=== PATIENT | male | born 2000 | race Caucasian/White ===

== ENCOUNTER 2021-07-26 19:44 | Emergency (ER) | payer SELFPAY ==
[~2021-07-26] VITALS: Ht 195.6 cm; Wt 81.6 kg
== END 2021-07-26 20:47 | disposition home or self-care (01) ==
LOC: ER 19:57
DX: Z48.01 Encounter for change or removal of surgical wound dressing (principal)
CPT/HCPCS: 99282

== ENCOUNTER → 2021-07-26 | Day surgery (SDC) | payer SELFPAY ==
[~2021-07-26] MED LIST: BUPIVACAINE HCL 0.5% INJ 30 ML VIAL INJ ONE; DEXAMETHASONE SOD PHOS INJ 4 MG/ML SDV ONE; DIPHENHYDRAMINE HCL INJ 50 MG/ML VIAL ONE; FENTANYL CITRATE/PF 100MCG/2 ML INJ ONE; KETOROLAC TROMETHAMINE 30 MG/ML VIAL ONE; LIDOCAINE 1% W/EPINEPHRINE 20 ML VIAL ONE; LIDOCAINE HCL 2% LOCAL INJ 5 ML SDV VIAL INJ ONE; MEPERIDINE HCL INJ 25 MG/ML VIAL ONE; MIDAZOLAM HCL 2 MG/2 ML VIAL ONE; Morphine 10mg syringe 10 MG/ML INJ ONE; ONDANSETRON HCL INJ 2MG/ML 2ML 2 MG/ML VIAL ONE; POVIDONE IODINE 0.05% 0.05 % ML PO ONE; PROMETHAZINE HCL (IM) 25 MG/ML VIAL IM ONE; PROPOFOL IV EMULSION 10 MG/ML 20 ML VIAL ONE; ROPIVACAINE 0.5% 5 MG/ML 30 ML SDV ONE; SEVOFLURANE INHAL SOLN 250 ML PEN BTL ONE; SODIUM CHLORIDE 0.9% 50ML 100 ML ONE; Vancomycin IV 1 GM VIAL ONE
[2021-07-26 15:15] VITALS: BP 142/94
== END | disposition home or self-care (01) ==
LOC: OR 08:17
PROVIDERS: ATTEND Orthopaedic Surgery
DX: S83.512A Sprain of anterior cruciate ligament of left knee, initial encounter (principal); S83.232A Complex tear of medial meniscus, current injury, left knee, initial encounter; M67.52 Plica syndrome, left knee; X50.1XXA Overexertion from prolonged static or awkward postures, initial encounter; Y93.67 Activity, basketball; Y99.8 Other external cause status; Z01.812 Encounter for preprocedural laboratory examination; Z20.822 Contact with and (suspected) exposure to COVID-19
CPT/HCPCS: 29888; C1713 ×2; C1769; C1776; J0690; J1100; J1885; J2001; J2175; J2250; J2270; J2405; J2550; J2704; J2795; J3010; J3370; U0002; J1200